=== PATIENT | male | born 1960 | race Caucasian/White ===

== ENCOUNTER 2017-07-18 15:08 | Emergency (ER) | payer SELFPAY ==
[~2017-07-18] VITALS: Ht 175.3 cm; Wt 80.0 kg
[2017-07-18 15:09] VITALS: BP 175/95; PULSE 81; RESP 18; TEMP 98.3; O2SAT 97
[2017-07-18] MEDS ORDERED: IRBE300T13 PO (15:17)
--- NOTE | 2017-07-18 15:17 | PD ---
HPI Chief Complaint: Medication Refill Request Time Seen by Provider: 15:12 Travel History International Travel<30 days: No Contact w/Intl Traveler<30days: No Traveled to known affect area: No History of Present Illness HPI 57-year-old male with history of hypertension, visiting from [facility], presents emergency department for a refill of his antihypertensive. Patient states he took his last pill this morning. Denies any acute symptoms at this time. He simply needs a refill of his medication. PFSH Past Medical History Hypertension: Yes Social History Tobacco Use: No Allergies-Medications (Allergen,Severity, Reaction): Coded Allergies: No Known Allergies (Unverified , 07/18/17) Reported Meds & Prescriptions Reported Meds & Active Scripts Active Irbesartan-Hydrochlorothiazide 300-12.5 Mg Tab 1 Tab PO DAILY Review of Systems Except as stated in HPI: all other systems reviewed are Neg Physical Exam Narrative GENERAL: Well-nourished, well-developed male patient, ambulatory and in no acute distress. SKIN: Focused skin assessment warm/dry. HEAD: Normocephalic. EYES: No scleral icterus. No injection or drainage. NECK: Supple, trachea midline. No JVD or lymphadenopathy. CARDIOVASCULAR: Regular rate and rhythm without murmurs, gallops, or rubs. RESPIRATORY: Breath sounds equal bilaterally. No accessory muscle use. MUSCULOSKELETAL: No cyanosis, or edema. BACK: Nontender without obvious deformity. No CVA tenderness. Data Data Last Documented VS Vital Signs Date Time Temp Pulse Resp B/P (MAP) Pulse Ox O2 Delivery O2 Flow Rate FiO2 07/18/17 15:09 98.3 81 18 175/95 (121) 97 Orders Orders Ed Discharge Order (07/18/17 15:17) [facility] Medical Decision Making Medical Screen Exam Complete: Yes Emergency Medical Condition: Yes Medical Record Reviewed: Yes Differential Diagnosis Hypertension versus medication refill versus medication noncompliance Narrative Course 57-year-old male presents emergency department for a refill of his antihypertensive. Patient is out of town from [facility]. He has no acute medical symptoms to report. He will be given a refill of his medication and provided outpatient clinic resources. He agrees to return immediately with acute worsening symptoms. Diagnosis Primary Impression: Medication refill Additional Impression: Hypertension Qualified Codes: I10 - Essential (primary) hypertension Referrals: Primary Care Physician Patient Instructions: General Instructions, Medication Refill, ED Med/Other Pt SpecificInfo: Prescription(s) given Scripts Irbesartan-Hydrochlorothiazide (Irbesartan-Hydrochlorothiazide) 300-12.5 Mg Tab 1 TAB PO DAILY for Blood Pressure Management, #30 TAB 0 Refills Prov: yAah Mendez 07/18/17 Disposition: 01 DISCHARGE HOME Condition: Stable Ayah Mendez July 18, 2017 15:17
== END 2017-07-18 15:20 | disposition home or self-care (01) ==
LOC: NEPK 15:08
DX: I10 Essential (primary) hypertension (principal)
CPT/HCPCS: 99283